=== PATIENT | male | born 1995 | race Caucasian/White ===

== ENCOUNTER 2019-04-20 11:19 | Inpatient (IN) | payer OTHER ==
[~2019-04-20] VITALS: Ht 188 cm; Wt 97.1 kg
--- NOTE | 2019-04-20 12:06 | NUR ---
PATIENT MEETS [facility]. CINA=[id number]. PATIENT IS GOING TO [facility] FOR RESIDENTIAL TREATMENT FOR HIS AFTERCARE PLAN. THE FACILITY WILL PROVIDE TRANSPORTATION ONCE PATIENT IS DISCHARGED. BASIM PIERRE B.A. [employer]ANKER
[2019-04-20 12:25] VITALS: BP 123/69
--- NOTE | 2019-04-20 12:25 | NUR ---
A 24, admitted to , under the services of SONIA Zuniga DO with a diagnosis of OPIATE DEPENDENCY, AND WITHDRAWAL. Chief complaint is WITHDRAWAL. Patient arrived via ambulatory from OR. Monitor applied. Initial assessment completed. Vital signs taken and recorded. SONIA ZUNIGA DO notified of admission to the unit. Orders received. See assessment for past medical history, medications and allergies. Patient and/or family oriented to unit. [facility] visitation policy reviewed. Clothing/patient valuable form completed. STEF LOVE
--- NOTE | 2019-04-20 12:30 | NUR ---
PT TAKES NO HOME MEDICATIONS
--- NOTE | 2019-04-20 13:00 | NUR ---
DR. BANGURA NOTIFIED OF PT NOT WANTING IV, STATED THAT PT DIDNT NEED IV.
[2019-04-20 13:54] LABS: URINE AMPHETAMINES < 1000 (1000ng/ml); URINE BARBITURATES > 200 (200ng/ml); URINE BENZODIAZEPINES < 200 (200ng/ml); URINE CANNABINOIDS (THC) < 50 (50ng/ml); URINE COCAINE < 300 (300ng/ml); URINE METHADONE < 300 (300ng/ml); URINE OPIATES < 300 (300ng/ml)
[2019-04-20 13:55] LABS: URINE PHENCYCLIDINE < 25 (25ng/ml)
[2019-04-20 13:57] LABS: BASO % 0.3 % (0.0-1.0); EOS # 0.2 10*3/uL (0.0-0.4); EOS % 2.3 % (1.0-4.0); HEMATOCRIT 42.4 % (42.0-52.0); LYMPH # 1.5 10*3/uL (1.3-4.4); LYMPH % 20.7 % (27.0-41.0); MEAN CELL VOLUME 87.6 fl (80.0-94.0); MEAN CORPUSCULAR HGB 28.9 pg (27.0-31.0); MEAN PLATELET VOLUME 10.9 fl (9.6-12.3); MONO # 0.5 10*3/uL (0.1-1.0); MONO % 6.5 % (3.0-9.0); NEUT # 5.1 10*3/uL (2.3-7.9); NEUT % 69.9 % (47.0-73.0); PLATELET COUNT AUTOMATED 82 10*3/uL (130-400); RED BLOOD COUNT 4.84 10*6/uL (4.50-5.90); RED CELL DISTRI WIDTH 12.3 % (0-14.5); WHITE BLOOD COUNT 7.2 10*3/uL (4.8-10.8)
[2019-04-20 14:08] LABS: ALBUMIN 3.6 gm/dl (3.1-4.5); ALKALINE PHOSPHATASE 84 U/L (45-117); BUN 8 mg/dl (7-24); CHLORIDE 105 mmol/L (98-107); CREATININE 0.67 mg/dL (0.70-1.30); POTASSIUM 4.1 mmol/L (3.5-5.1); SGOT/AST 81 IU/L (3-35); SGPT/ALT 120 U/L (12-78); SODIUM 140 mmol/L (136-145); TOTAL PROTEIN 6.9 gm/dL (6.4-8.2)
[2019-04-20 14:19] LABS: ETHYL ALCOHOL < 3.0 mg/dl (<3)
--- NOTE | 2019-04-20 14:30 | NUR ---
PT SLEEPING AT THIS TIME. NO S/S OF DISTRESS NOTED. CALL LIGHT IN REACH
--- NOTE | 2019-04-20 15:00 | NUR ---
PT WATCHING TV AT THIS TIME.
[2019-04-20 16:00] VITALS: BP 119/68
--- NOTE | 2019-04-20 19:30 | NUR ---
24 HOUR CHART CHECK COMPLETE
--- NOTE | 2019-04-20 20:00 | NUR ---
PATIENT ASSESSMENT COMPLETED WITHOUT INCIDENT. NO SIGNS OR SYMPTOMS OF WITHDRAWAL NOTED AT THIS TIME, PATIENT HAS NO COMPLAINTS OF WITHDRAWAL SYMPTOMS AT THIS TIME. REQUESTING SOMETHING TO HELP HIM SLEEP IF ORDERED. CALL LIGHT WITHIN REACH, WILL CONTINUE TO MONITOR.
[2019-04-21] VITALS: BP 103/54
[2019-04-21 08:00] VITALS: BP 120/64
[2019-04-21 16:00] VITALS: BP 122/70
--- NOTE | 2019-04-21 23:58 | NUR ---
24 HOUR CHART CHECK COMPLETE
[2019-04-22] VITALS: BP 92/44
[2019-04-22 08:00] VITALS: BP 93/50
--- NOTE | 2019-04-22 08:00 | NUR ---
ALERT AND ORIENTED, PLEASANT,NO TREMORS, NO OVERT S/S WITHDRAWAL DENIES NEED FOR ANY PRN MEDS
[2019-04-22 12:00] VITALS: BP 122/63
--- NOTE | 2019-04-22 15:26 | NUR ---
ASSUMED CARE OF PATIENT, RECEIVED REPORT FROM RUIZ PATEL.
[2019-04-22 16:00] VITALS: BP 99/53
--- NOTE | 2019-04-22 20:04 | NUR ---
24 HOUR CHART CHECK COMPLETE
[2019-04-23] VITALS: BP 121/71
[2019-04-23 06:32] LABS: BASO % 0.7 % (0.0-1.0); EOS # 0.1 10*3/uL (0.0-0.4); EOS % 1.5 % (1.0-4.0); HEMATOCRIT 42.8 % (42.0-52.0); HEMOGLOBIN 14.2 g/dl (14.0-18.0); LYMPH # 2.3 10*3/uL (1.3-4.4); LYMPH % 41.3 % (27.0-41.0); MEAN CELL VOLUME 87.5 fl (80.0-94.0); MEAN CORPUSCULAR HGB CONC 33.2 g/dl (33.0-37.0); MONO # 0.7 10*3/uL (0.1-1.0); MONO % 11.9 % (3.0-9.0); NEUT # 2.4 10*3/uL (2.3-7.9); NEUT % 44.4 % (47.0-73.0); PLATELET COUNT AUTOMATED 149 10*3/uL (130-400); RED BLOOD COUNT 4.89 10*6/uL (4.50-5.90); RED CELL DISTRI WIDTH 12.1 % (0-14.5); WHITE BLOOD COUNT 5.5 10*3/uL (4.8-10.8)
[2019-04-23 06:46] LABS: CREATININE 0.92 mg/dL (0.70-1.30)
[2019-04-23 08:00] VITALS: BP 118/70
[2019-04-23 11:26] VITALS: BP 114/70
--- NOTE | 2019-04-23 12:03 | NUR ---
Discharge instructions reviewed with patient. Patient receptive and verbalizes understanding. Follow-up care arranged. Written instructions given to patient. PATIENT WAITING FOR RIDE TO [facility]. JAMAR CLOUD
--- NOTE | 2019-04-23 14:11 | NUR ---
PER [facility], PATIENT'S RIDE IS IN THE LOBBY. PATIENT DISCHARGED TO [facility] FOR TRANSPORT TO [facility] BY CAR.
== END 2019-04-23 12:03 | DRG 773 ==
LOC: 5E 11:19
PROVIDERS: Student in an Organized Health Care Education/Training Program; ADMIT Internal Medicine
DX: F11.23 Opioid dependence with withdrawal (principal); G25.81 Restless legs syndrome; F41.9 Anxiety disorder, unspecified; J30.2 Other seasonal allergic rhinitis; F17.210 Nicotine dependence, cigarettes, uncomplicated; Z78.9 Other specified health status; Z71.6 Tobacco abuse counseling; Z82.49 Family history of ischemic heart disease and other diseases of the circulatory system; Z88.0 Allergy status to penicillin